=== PATIENT | female | born 1980 | race Hispanic/Latino ===

== ENCOUNTER 2017-08-31 18:40 | Emergency (ER) | payer OTHER, SELFPAY ==
[2017-08-31 18:46] VITALS: BP 116/79; PULSE 85; RESP 14; O2SAT 98; BMI 18.8
[2017-08-31 19:02] LABS: Appearance Urine UA CLEAR; Bilirubin Urine UA NEGATIVE (NEGATIVE); Color Urine UA YELLOW; Glucose Urine UA NEGATIVE (NEGATIVE); Ketones Urine UA 3+ (NEGATIVE); Leukocyte Esterase Urine UA NEGATIVE (NEGATIVE); Nitrite Urine UA NEGATIVE (NEGATIVE); Occult Blood Urine UA NEGATIVE (NEGATIVE); Protein Urine UA TRACE (NEGATIVE); Urobilinogen Urine UA 0.2 E.U./dL (0.2)
--- NOTE | 2017-08-31 19:07 | ED_ITS ---
HPI - URI/Sore Throat <CHEY Gresham - Last Filed: 08/31/17 22:25> General Chief Complaint: Upper Respiratory Symptoms Stated Complaint: STREP THROAT/ABCESS History of Present Illness HPI Narrative: Healthy 36-year-old female sent over from clinic on [facility] due to having strep infection that is can concerning for [employer]. Patient reports that she has had 3 strep pharyngitis infections over the past 3 months. She reports that she has had increased swelling to the right oropharynx over the past couple of days. She reports having a sore throat over the past 4 days. She states she had a fever a couple of days ago however she does not have fever today. She is able to tolerate fluids with no complications. She denies any shortness of breath. She denies any other concerns or complaints at this time. Related Data Previous Rx's Medication Instructions Recorded amoxicillin-pot clavulanate 1 tab PO BID #14 tab 08/31/17 [Augmentin] prednisone See Label Instructions .ROUTE 08/31/17 .COMPLEX #18 tab Allergies Allergy/AdvReac Type Severity Reaction Status Date / Time No Known Drug Allergies Allergy Verified 08/31/17 18:49 Review of Systems <CHEY Gresham - Last Filed: 08/31/17 22:25> Constitutional Reports chills, Reports fever(s) and Denies frequent falls ENT Ears, Nose, Mouth, and Throat: Denies dizziness and Reports sore throat Cardiovascular Denies chest pain, Denies irregular heart rhythm, Denies lightheadedness, Denies palpitations, Denies dyspnea, Denies dyspnea on exertion and Denies orthopnea Respiratory Denies cough, Denies dyspnea, Denies dyspnea on exertion and Denies wheezing Genitourinary Denies hematuria, Denies flank pain, Denies urinary incontinence and Denies urinary urgency Musculoskeletal Denies numbness Integumentary/Breasts Denies pruritus, Denies erythema, Denies rash and Denies wounds Neurologic Denies behavioral changes, Denies confusion, Denies dizziness, Denies frequent falls and Denies numbness Psychiatric Denies behavioral changes and Denies confusion Endocrine Denies palpitations Allergic/Immunologic Denies wheezing Exam <CHEY Gresham - Last Filed: 08/31/17 22:25> Const General: cooperative, well developed and No acute distress Nutritional Appearance: well nourished Orientation: alert, awake, oriented x3 and not confused [facility] Throat: uvula not midline, peritonsillar mass, posterior oropharynx abnormal, uvula laterally displaced and other (Oropharynx shows tonsillar swelling right greater than left with uvular deviation to the left. No purulent drainage observed.) Eyes General: appearance normal, both eyes and all related structures Eyelids: eyelids normal Conjunctivae: conjunctivae normal Sclera: sclerae normal Pupils: PERRL EOM: EOM intact bilaterally Neck Neck: full ROM and supple Thyroid: tender Lymphatic: lymphadenopathy Resp Effort & Inspection: normal respiratory effort, able to speak in complete sentences, no respiratory distress and no use of accessory muscles Auscultation: clear to auscultation bilaterally, no rales, no rhonchi and no wheezes Cardio Rate: regular rate Rhythm: regular rhythm Heart Sounds: no click, no gallops, no murmurs and no rubs Pulses: normal peripheral pulses Skin General: no rashes or lesions noted, No jaundice and No petechiae <Jacqueline Iglesias DO - Last Filed: 09/01/17 03:53> [facility] Head: normal to inspection Throat: peritonsillar mass on the right fluctuant and edematous, posterior oropharynx abnormal edema and exudates and other Neck Neck: submandibular swelling Lymphatic: lymphadenopathy (Right thigh) Resp Effort & Inspection: normal respiratory effort, able to speak in complete sentences, normal respiratory pattern, no stridor, no tracheal deviation, no tripod positioning and no use of accessory muscles Other: Patient appears in no respiratory distress managing her own secretions [facility] - URI/Sore Throat <CHEY Gresham - Last Filed: 08/31/17 22:25> [facility] Narrative Medical decision making narrative: Patient was given 20 mg of Decadron IV and emergency room. She was also given 3 g of Unasyn. Patient was given a L of normal saline. Patient was able to tolerate fluids well. Discussed case with Dr. Adriano SHEPHERD with plan to discharge her on a prednisone and Augmentin he agrees with plan he request that she get put on a 10 day prednisone taper plan. She is to call ENT office tomorrow and schedule appointment 1st part of next week. For any worsening symptoms return to the emergency room. Lab Data Lab Results 08/31/17 Range/Units 18:56 Urine Color Yellow Urine Appearance Clear Urine pH 6.0 (4.5-8.0) Ur Specific [place] 1.010 (1.000-1.035) Urine Protein Trace (NEGATIVE) Urine Glucose (UA) Negative (NEGATIVE) g/dL Urine Ketones 3+ H (NEGATIVE) Urine Occult Blood Negative (NEGATIVE) Urine Nitrate Negative (NEGATIVE) Urine Bilirubin Negative (NEGATIVE) Urine Urobilinogen 0.2 (0.2) E.U./dL Ur Leukocyte Esterase Negative (NEGATIVE) Ur Squamous Epith Cells 1-5 /hpf Ur Culture Indicated? Cult not indicated Micro UA Comment Not Reportable <Jacqueline Iglesias DO - Last Filed: 09/01/17 03:53> Lab Data Lab Results 08/31/17 Range/Units 18:56 Urine Color Yellow Urine Appearance Clear Urine pH 6.0 (4.5-8.0) Ur Specific [place] 1.010 (1.000-1.035) Urine Protein Trace (NEGATIVE) Urine Glucose (UA) Negative (NEGATIVE) g/dL Urine Ketones 3+ H (NEGATIVE) Urine Occult Blood Negative (NEGATIVE) Urine Nitrate Negative (NEGATIVE) Urine Bilirubin Negative (NEGATIVE) Urine Urobilinogen 0.2 (0.2) E.U./dL Ur Leukocyte Esterase Negative (NEGATIVE) Ur Squamous Epith Cells 1-5 /hpf Ur Culture Indicated? Cult not indicated Micro UA Comment Not Reportable Course <CHEY Gresham - Last Filed: 08/31/17 22:25> Orders Ordered: ED Orders 08/31/17 18:56 Urinalysis and Microscopic Stat Discontinued Medications Dexamethasone 20 mg/ Sodium (Chloride) 52 mls @ 208 mls/hr IV NOW ONE Stop: 08/31/17 19:30 Last Infusion: 08/31/17 20:32 Dose: 0 mls/hr Admin: 08/31/17 20:02 Dose: 208 mls/hr Ampicillin Sodium/Sulbactam (Sodium 3 gm/ Sodium Chloride) 100 mls @ 100 mls/ hr IV NOW ONE Stop: 08/31/17 19:30 Last Infusion: 08/31/17 21:46 Dose: 0 mls/hr Admin: 08/31/17 20:02 Dose: 100 mls/hr Sodium Chloride (Normal Saline 0.9%) 500 mls @ 1,000 mls/hr IV BOLUS ONE Stop: 08/31/17 20:01 Last Infusion: 08/31/17 21:46 Dose: 0 mls/hr Admin: 08/31/17 20:02 Dose: 1,000 mls/hr Ketorolac Tromethamine (Toradol) 30 mg IV NOW ONE Stop: 08/31/17 19:30 Reevaluation(s) Reevaluation #1: Patient tolerating fluids and is doing well Time: 20:30 Consultations Consultation #1: Dr. Carlo Oh ENT Time: 21:00 Last Vital Signs Pulse 97 H 08/31/17 21:59 Resp 14 08/31/17 21:59 BP 113/68 08/31/17 21:59 Pulse Ox 100 08/31/17 21:59 <Jacqueline Iglesias DO - Last Filed: 09/01/17 03:53> Orders Ordered: ED Orders 08/31/17 18:56 Urinalysis and Microscopic Stat Discontinued Medications Dexamethasone 20 mg/ Sodium (Chloride) 52 mls @ 208 mls/hr IV NOW ONE Stop: 08/31/17 19:30 Last Infusion: 08/31/17 20:32 Dose: 0 mls/hr Admin: 08/31/17 20:02 Dose: 208 mls/hr Ampicillin Sodium/Sulbactam (Sodium 3 gm/ Sodium Chloride) 100 mls @ 100 mls/ hr IV NOW ONE Stop: 08/31/17 19:30 Last Infusion: 08/31/17 21:46 Dose: 0 mls/hr Admin: 08/31/17 20:02 Dose: 100 mls/hr Sodium Chloride (Normal Saline 0.9%) 500 mls @ 1,000 mls/hr IV BOLUS ONE Stop: 08/31/17 20:01 Last Infusion: 08/31/17 21:46 Dose: 0 mls/hr Admin: 08/31/17 20:02 Dose: 1,000 mls/hr Ketorolac Tromethamine (Toradol) 30 mg IV NOW ONE Stop: 08/31/17 19:30 Last Vital Signs Pulse 97 H 08/31/17 21:59 Resp 14 08/31/17 21:59 BP 113/68 08/31/17 21:59 Pulse Ox 100 08/31/17 21:59 Discharge Plan Departure Patient Disposition: Home, Self-Care Clinical Impression: Strep pharyngitis Discharge Date/Time: 08/31/17 22:01 Interventions: ED Discharge Assessment Last Done: 08/31/17 21:59 Instructions: DI for Peritonsillar Abscess -- Adult Activity Restrictions/Additional Instructions: You were given antibiotics IV along with steroids and fluids in the emergency room. You are prescribed Augmentin an antibiotic and a taper dose of prednisone steroid use as directed. Call ENT number provided to schedule appointment 1st part of next week. Plenty of fluids. [id number] Tylenol or Motrin as needed for discomfort. Return emergency room for any worsening symptoms. Prescriptions: New amoxicillin-pot clavulanate [Augmentin] 875-125 mg tablet 1 tab PO BID Qty: 14 RF: 0 prednisone 20 mg tablet See Label Instructions .ROUTE .COMPLEX Qty: 18 RF: 0 Referrals: Aakash Walden MD [Physician] - Ileana Adamson ARNP [Primary Care Provider] - <Jacqueline Iglesias DO - Last Filed: 09/01/17 03:53> Sign out: I was immediately available in the department for consultation. Documentation has been reviewed. I agree with assessment and plan.
[2017-08-31 19:10] LABS: Culture Indicated Urine Cult Not Indicated; Squamous Epithelial Cell Urine 1-5 /HPF
[2017-08-31] MEDS: AMPICILLIN/SULBACTAM 3 GM 3 GM in SODIUM CHLORIDE 0.9% 100 ML IV (20:02)
[2017-08-31] MEDS: DEXAMETHASONE 20 MG in SODIUM CHLORIDE 0.9% 50 ML 208 ML IV (20:02)
[2017-08-31] MEDS: SODIUM CHLORIDE 0.9% 500 ML 1000 ML IV (20:02)
[2017-08-31 20:41] VITALS: BP 108/64; PULSE 84; RESP 15; O2SAT 100
[2017-08-31 21:59] VITALS: BP 113/68; PULSE 97; RESP 14; O2SAT 100
== END 2017-08-31 22:01 | disposition home or self-care (01) ==
PROVIDERS: Emergency Provider Nurse Practitioner Family; PCP Nurse Practitioner Family
DX: J02.0 Streptococcal pharyngitis (principal)
CPT/HCPCS: 36591; 81001; 81025; 96365; 96368; 96375; 99283; 99284; J0295; J1100

== ENCOUNTER → 2021-07-28 08:31 | Outpatient (CLI) | payer OTHER, SELFPAY ==
[2021-07-28 18:37] LABS: Alanine Aminotransferase 17 IU/L (<35); Albumin 4.3 g/dL (3.5-5.0); Albumin Globulin Ratio 1.5 (1.0-2.8); Alkaline Phosphatase 67 U/L (38-126); Amylase 58 U/L (30-110); Aspartate Aminotransferase 33 IU/L (14-36); BUN Creatinine Ratio 17.7 (6-22); Bilirubin Total 0.7 mg/dL (0.2-1.3); Blood Urea Nitrogen 11 mg/dL (7-17); Calcium 9.2 mg/dL (8.4-10.2); Carbon Dioxide 22 mmol/L (22-32); Chloride 107 mmol/L (98-107); Estimated Glomerular Filt Rate > 60.0 mL/min (>60); Globulin 2.8 g/dL (1.7-4.1); Glucose 93 mg/dL (70-100); Lipase 72 U/L (23-300); Sodium 140 mmol/L (137-145); Total Protein 7.1 g/dL (6.3-8.2)
[2021-07-28 18:40] LABS: Add Manual Diff / Slide Review NO; Basophils Absolute Auto 0 /uL (0-100); Basophils Percent Auto 0.6 % (0-2); Eosinophils Absolute Auto 200 /uL (0-450); Eosinophils Percent Auto 3.1 % (2-4); Hematocrit 37.6 % (36-46); Hemoglobin 12.5 g/dL (12.0-16.0); Lymphocytes Absolute Auto 1700 /uL (1100-4500); Lymphocytes Percent Auto 28.9 % (25-40); Mean Corpuscular HGB Conc 33.3 % (30-36); Mean Corpuscular Hemoglobin 27.1 PG (26-34); Mean Corpuscular Volume 81.3 fL (80-100); Monocytes Absolute Auto 400 /uL (0-900); Monocytes Percent Auto 7.6 % (3-14); Neutrophils Absolute Auto 3500 /uL (1500-7000); Neutrophils Percent Auto 59.8 % (50-75); Platelet Count 307 X10^3/uL (150-400); Red Blood Cell Count 4.63 X10^6/uL (4.0-5.2); Red Cell Distribution Width 13.7 % (11.6-14.8); White Blood Cell Count 5.8 X10^3/uL (4.5-11.0)
[2021-07-28 19:00] LABS: HEMOLYSIS 56 (0-50); Potassium 4.2 mmol/L (3.4-5.1)
[2021-07-28 23:27] LABS: HIV 1 & 2 Ab/Ag 4th Gen Combo NEGATIVE (NEGATIVE); Hep C Virus Ab w/Reflex Quant NEGATIVE s/c (NEGATIVE)
[2021-07-30 00:08] LABS: Hepatitis B Core AB w/Reflex Negative (Negative)
[2021-07-30 06:15] LABS: RPR Screen Non Reactive (Non Reactive)
[2021-07-30 07:44] LABS: HSV 2 IGG AB < 0.91 index (0.00-0.90)
[2021-07-30 14:08] LABS: HSV I/II IgM <0.91 Ratio (0.00-0.90)
== END ==
PROVIDERS: PCP Physician Assistant Medical; Visit Provider Physician Assistant
DX: R10.13 Epigastric pain (principal); Z11.3 Encounter for screening for infections with a predominantly sexual mode of transmission; Z72.51 High risk heterosexual behavior
CPT/HCPCS: 80053; 82150; 83690; 85025; 86592; 86694; 86695; 86696; 86704; 86803; 87389

== ENCOUNTER → 2021-09-13 13:46 | Outpatient (CLI) | payer OTHER, SELFPAY ==
[2021-09-13 15:05] LABS: Cancer Antigen 125 20.1 U/mL (0-35)
== END ==
PROVIDERS: PCP Physician Assistant Medical; Referring Provider Obstetrics & Gynecology; Visit Provider Obstetrics & Gynecology
DX: N83.8 Other noninflammatory disorders of ovary, fallopian tube and broad ligament (principal)
CPT/HCPCS: 36415; 86304

== ENCOUNTER → 2021-09-21 08:33 | Outpatient (CLI) | payer OTHER, SELFPAY ==
[2021-09-21 20:10] LABS: COVID19 - ORCAS (NP or Nasal) Negative (Negative)
== END ==
PROVIDERS: PCP Physician Assistant Medical; Visit Provider Physician Assistant Medical
DX: Z01.812 Encounter for preprocedural laboratory examination (principal); Z20.822 Contact with and (suspected) exposure to COVID-19
CPT/HCPCS: U0003

== ENCOUNTER → 2022-01-31 14:41 | Outpatient (CLI) | payer OTHER, SELFPAY ==
[2022-01-31 16:38] LABS: Cancer Antigen 125 11.3 U/mL (0-35)
[2022-01-31 16:49] LABS: HIV 1 & 2 Ab/Ag 4th Gen Combo NEGATIVE (NEGATIVE)
[2022-02-02 01:44] LABS: Hepatitis B Core AB w/Reflex Negative (Negative)
[2022-02-02 09:35] LABS: RPR Screen Non Reactive (Non Reactive)
== END ==
PROVIDERS: PCP Physician Assistant Medical; Referring Provider Obstetrics & Gynecology; Visit Provider Obstetrics & Gynecology
DX: N83.8 Other noninflammatory disorders of ovary, fallopian tube and broad ligament (principal); Z11.3 Encounter for screening for infections with a predominantly sexual mode of transmission; Z72.51 High risk heterosexual behavior
CPT/HCPCS: 36415; 86304; 86592; 86704; 87389

== ENCOUNTER → 2022-08-23 10:23 | Outpatient (CLI) | payer OTHER, SELFPAY | PROVIDERS: PCP Physician Assistant Medical; Visit Provider Nurse Practitioner Adult Health | DX: R30.0 Dysuria (principal); R35.0 Frequency of micturition | CPT/HCPCS: 87077; 87086; 87186 ==

== ENCOUNTER → 2023-02-06 10:44 | Outpatient (CLI) | payer OTHER, SELFPAY | PROVIDERS: PCP Family Medicine; Visit Provider Physician Assistant | DX: J02.9 Acute pharyngitis, unspecified (principal) | CPT/HCPCS: 87070; 87077; 87147 ==

== ENCOUNTER → 2023-02-21 09:20 | Outpatient (CLI) | payer OTHER, SELFPAY ==
[2023-02-21 19:23] LABS: Alanine Aminotransferase 17 IU/L (<35); Albumin Globulin Ratio 1.3 (1.0-2.8); Alkaline Phosphatase 38 U/L (38-126); Aspartate Aminotransferase 21 IU/L (14-36); BUN Creatinine Ratio 10.9 (6-22); Bilirubin Total 0.6 mg/dL (0.2-1.3); Blood Urea Nitrogen 7 mg/dL (7-17); Calcium 9.3 mg/dL (8.4-10.2); Carbon Dioxide 24 mmol/L (22-32); Chloride 106 mmol/L (98-107); Cholesterol 158 mg/dL (140-199); Estimated Glomerular Filt Rate > 60 mL/min (>60); Glucose 84 mg/dL (70-100); HDL Cholesterol 66 mg/dL (40-60); HEMOLYSIS < 15 (0-50); LDL Cholesterol Calculated 80 mg/dL (<100); Potassium 4.2 mmol/L (3.4-5.1); Sodium 138 mmol/L (137-145); Triglycerides 62 mg/dL (35-150)
[2023-02-23 16:28] LABS: HIV 1 & 2 Ab/Ag 4th Gen Combo NEGATIVE (NEGATIVE)
== END ==
PROVIDERS: PCP Family Medicine; Visit Provider Physician Assistant
DX: Z13.6 Encounter for screening for cardiovascular disorders (principal); Z13.1 Encounter for screening for diabetes mellitus; Z11.3 Encounter for screening for infections with a predominantly sexual mode of transmission
CPT/HCPCS: 80053; 80061; 87389

== ENCOUNTER → 2024-05-23 11:41 | Outpatient (CLI) | payer OTHER, SELFPAY ==
[2024-05-23 21:13] LABS: Hepatitis B Surface Antigen NEGATIVE s/c (NEGATIVE)
[2024-05-23 21:22] LABS: HIV 1 & 2 Ab/Ag 4th Gen Combo NEGATIVE (NEGATIVE); Hep C Virus Ab w/Reflex Quant NEGATIVE s/c (NEGATIVE)
[2024-05-23 21:59] LABS: Urine N gonorrhoeae NOT DETECTED
[2024-05-23 22:18] LABS: Urine Chlamydia NOT DETECTED
== END ==
PROVIDERS: PCP Family Medicine; Visit Provider Physician Assistant Medical
DX: Z72.51 High risk heterosexual behavior (principal); Z11.3 Encounter for screening for infections with a predominantly sexual mode of transmission
CPT/HCPCS: 86592; 86695; 86696; 86803; 87340; 87389; 87491; 87591